=== PATIENT | female | born 1990 | race Caucasian/White ===

== ENCOUNTER 2022-06-19 11:15 | Emergency (ER) | payer OTHER, SELFPAY ==
--- NOTE | ~2022-06-19 | US_ITS ---
EXAMINATION: US PELVIS CLINICAL INFORMATION: Lower abdominal pain COMPARISON: Previous CT of the abdomen and pelvis from earlier the same day TECHNIQUE: Ultrasound of the pelvis is performed using both transabdominal and transvaginal transducers along with Doppler. Grayscale and color evaluation of the ovarian vessels including waveform spectral analysis FINDINGS: The uterus is anteverted and measures 8 x 3.6 x 5.3 cm. No focal uterine lesion is seen. Endometrial thickness is normal measuring 1.6 cm. The right ovary is slightly enlarged measuring 5.3 x 4.1 2.9 cm. There are 2 heterogeneous partially hypoechoic partially hyperechoic lesions in the right ovary measuring 2 x 1.7 x 2 cm and 2.3 x 1.7 x 2.6 cm. Compared with previous CT this is compatible with a dermoid. Arterial and venous flow is documented to the right ovary. There is no evidence of torsion. The left ovary is slightly enlarged and measures 4.7 x 3.1 x 2.8 cm. There is a heterogeneous 3 x 2.5 x 2.3 cm partially hypoechoic partially hyperechoic lesion in the left ovary also compatible with a dermoid. Arterial and venous flow is documented to the left ovary.. There is no evidence of torsion. There is no fluid in the pelvis. US/US pelvic complete IMPRESSION: No evidence of torsion. Bilateral heterogeneous ovarian lesions which when compared with prior CT likely represent dermoids.
--- NOTE | ~2022-06-19 | CT_ITS ---
EXAMINATION: CT ABDOMEN AND PELVIS WITH CONTRAST CLINICAL INFORMATION: Lower abdominal pain COMPARISON: None TECHNIQUE: Multidetector volumetric images were obtained from the superior aspect of the liver through the pubic symphysis following administration 85 mL of Omnipaque 350 intravenous contrast. Sagittal and coronal reformatted images were obtained on the technologist's workstation. Oral contrast: Yes This CT examination was performed using dose optimization techniques as appropriate, variously including the following: *Automated exposure control *Adjustment of mA and/or kV according to patient size (this includes techniques or standardized protocols for targeted exams where dose is matched to indication/reason for exam; i.e. extremities or head) *Use of iterative reconstruction technique DLP: 385 mGy-cm FINDINGS: LUNG BASES: The visualized lung bases are unremarkable. LIVER, GALLBLADDER, AND BILIARY TREE: The liver is normal in size, shape, and attenuation. No focal hepatic lesion or biliary ductal dilatation is present. The gallbladder is unremarkable with no evidence of radiopaque gallstones, gallbladder wall thickening, or obvious pericholecystic inflammatory changes. PANCREAS: Unremarkable. SPLEEN: Unremarkable. ADRENAL GLANDS: Unremarkable. KIDNEYS AND URETERS: The kidneys are normal in size, shape, and attenuation. No hydronephrosis, hydroureter, or calculi seen. No perinephric stranding. BLADDER: Unremarkable. GASTROINTESTINAL TRACT: The small and large bowel are unremarkable. The appendix is unremarkable. There may be a small esophageal hernia and question wall thickening of the distal thoracic esophagus/GE junction.. ABDOMINAL WALL: No significant hernia is appreciated. LYMPH NODES: Normal. VASCULAR: Unremarkable. PELVIC VISCERA: There are bilateral adnexal dermoid cysts. These are bilobed and measure 2.8 x 4.3 cm on the right with a tooth and 1.2 x 2.6 cm on the left. The uterus is unremarkable. OSSEOUS STRUCTURES: Unremarkable. CT/CT abdomen pelvis w IV con IMPRESSION: Bilateral adnexal dermoid cysts. Probable small esophageal hernia. Fleischner guidelines were followed.
--- NOTE | ~2022-06-19 | US_ITS ---
EXAMINATION: US PELVIS CLINICAL INFORMATION: Lower abdominal pain COMPARISON: Previous CT of the abdomen and pelvis from earlier the same day TECHNIQUE: Ultrasound of the pelvis is performed using both transabdominal and transvaginal transducers along with Doppler. Grayscale and color evaluation of the ovarian vessels including waveform spectral analysis FINDINGS: The uterus is anteverted and measures 8 x 3.6 x 5.3 cm. No focal uterine lesion is seen. Endometrial thickness is normal measuring 1.6 cm. The right ovary is slightly enlarged measuring 5.3 x 4.1 2.9 cm. There are 2 heterogeneous partially hypoechoic partially hyperechoic lesions in the right ovary measuring 2 x 1.7 x 2 cm and 2.3 x 1.7 x 2.6 cm. Compared with previous CT this is compatible with a dermoid. Arterial and venous flow is documented to the right ovary. There is no evidence of torsion. The left ovary is slightly enlarged and measures 4.7 x 3.1 x 2.8 cm. There is a heterogeneous 3 x 2.5 x 2.3 cm partially hypoechoic partially hyperechoic lesion in the left ovary also compatible with a dermoid. Arterial and venous flow is documented to the left ovary.. There is no evidence of torsion. There is no fluid in the pelvis. US/US pelvic ovarian doppler IMPRESSION: No evidence of torsion. Bilateral heterogeneous ovarian lesions which when compared with prior CT likely represent dermoids.
[2022-06-19 11:20] VITALS: BP 138/88; PULSE 128; RESP 20; TEMP 36.7; O2SAT 98; BMI 21.6
--- NOTE | 2022-06-19 15:23 | ED.ABDPAIN ---
HPI - Abdominal Pain General Chief Complaint: Abdominal Pain Stated Complaint: abd pain Time Seen by Provider: 06/19/22 15:16 Source: patient Mode of arrival: ambulatory Limitations: no limitations History of Present Illness HPI narrative: Is a 31-year-old female presenting to the emergency department with fatigue, malaise, nausea, vomiting, abdominal pain x4 days. Patient reports severe lower abdominal pain that is constant in nature, patient tells me she has been intermittently vomiting throughout the day, she reports vomiting I yellow bile like substance. Tells me she has not been able to keep anything down for the past 4 days. She tells me she feels awful. I asked her if she has ever had anything like this before she tells me never. She states she has a history of ovarian cyst however this does not feel like the time should ovarian cyst. She denies fevers, chills, headache, vision changes, dizziness, chest pain, shortness of breath, changes in diet, changes in urination, changes in bowel habits, vaginal bleeding & discharge. Patient went to an urgent care this morning who advised her to come into the emergency department for further evaluation and treatment, she had a negative urine test and a negative COVID swab. Patient reports that she does not drink alcohol. Related Data Previous Rx's Medication Instructions Recorded ondansetron 4 mg disintegrating 4 mg PO Q6H PRN nausea and 06/19/22 tablet vomiting #14 tabs Allergies Allergy/AdvReac Type Severity Reaction Status Date / Time divalproex sodium Allergy Unknown ANAPHYLAXIS Verified 06/19/22 23:35 [From DEPAKOTE] hydromorphone [From DILAUDID] Allergy Unknown NAUSEA AND Verified 06/19/22 23:35 THROAT PAIN Review of Systems Review of Systems Constitutional : No Weight loss, No Fever, No Chills, No Fatigue, No Malaise ENT/Mouth : No sore throat, No Rhinorrhea Eyes: No Eye Pain, No Swelling, No Redness Cardiovascular : No Chest Pain, No SOB, No Dyspnea on Exertion, No Orthopnea, No Edema, No Palpitations Respiratory : No Cough, No Sputum, No Wheezing Gastrointestinal : + Nausea, + Vomiting, No Diarrhea, No Constipation, + abdominal Pain, No Hematochezia, No Melena Genitourinary : No Dysuria, No Urinary Frequency, No Hematuria, Musculoskeletal : No joint pain, No Myalgias, No Joint Swelling Skin : No Skin Lesions, No rash Neuro : No Weakness, No Numbness, No Dizziness, No Headache Psych : No Anxiety/Panic, No Depression All other systems reviewed and are negative Yes all other systems are reviewed and are negative [facility] Past Medical History Attestation statement: The following information was validated with the patient. Source: old records reviewed and nursing notes reviewed Social History Social History Advance Directives: No Advance Directives Information Provided: Yes Patient : No Physical Exam ED Vital Signs: Vital Signs - 24 hr 06/19/22 11:20 06/19/22 16:56 06/19/22 23:28 Temperature 98.1 F 98.5 F Pulse Rate 128 H 91 85 Respiratory Rate 20 18 Blood Pressure 138/88 124/89 111/79 Pulse Oximetry 98 98 97 Oxygen Delivery Method Room Air Room Air Room Air BMI result Body Mass Index 21.6 vss Appearance: Alert.? Oriented X3.? No acute distress.? Head: Normocephalic, atraumatic, no step-offs or deformities Eyes: Pupils equal, round and reactive to light.? ENT: Pharynx normal.? Dry mucous membrane Neck: Normal inspection.? Neck supple.? CVS: Normal heart rate and rhythm.? Pulses normal.? Respiratory: No respiratory distress.? Breath sounds normal.? Abdomen: Soft and + tenderness to lower abdomen throughout. Negative Freeman sign..? Skin: Skin warm and dry.+ pale skin. Normal skin turgor.? Extremities: No lower extremity edema.? No calf ttp. 5/5 strength to bilateral upper and lower extremities Neuro: Oriented X 3.? No motor deficit.? No sensory deficit. CN 2-12 intact Course Reevaluation(s) Reevaluation #1: CBC with slight leukocytosis likely reactive from nausea/vomiting, chemistry with no electrolyte abnormalities requiring intervention, liver panel within normal limits, lipase within normal limits. Urine negative. COVID negative. CT of the abdomen and pelvis with bilateral adnexal dermoid cyst, and possible small esophageal hernia. At this time pelvic and transvaginal ultrasound ordered. Patient has been without vomiting for the past few hours. Time: 21:20 Reevaluation #2: Pelvic ultrasound with no evidence of torsion. Bilateral ovarian lesions which when compared with prior CT likely represent dermoids. Educated patient on this finding, she tells me she knew about this. Still reporting abdominal pain. Will give GI cocktail Time: 23:19 Reevaluation #3: Urine clean. At this time patient will be discharged home will give p.o. fluids to ensure she can all them down. At this time I feel comfortable discharge with prompt PCP follow-up. Advised to follow-up with PCP, OBGYN in GI of necessary. Comfortable discharge I suspect this is viral in origin. Time: 00:27 MDM - Abdominal Pain MDM Narrative Medical decision making narrative: [id number] 31 year old female presents with nausea, vomiting and abd pain X4 days PE with lower abd pain throughout. Normal bowel sounds. RRR.Lungs clear. Neuro nonfocal. Patient appears pale. Will rule out pancreatitis, cholecystitis, appendicitis. However likely viral in origin. Unlikely ovarian torsion, ectopic or ovarian cyst. Plan at this time is basic labs, urine, urine . Will give fluids, antiemetic Medical Records Attestation: I reviewed the patient's medical records. Lab Data Attestation: I reviewed the patient's lab results. Result diagrams: 06/19/22 16:09 06/19/22 16:09 Labs: Lab Results 06/19/22 06/19/22 06/19/22 Range/Units 15:27 16:09 16:09 WBC 11.5 H (4.8-10.8) X10*3/uL RBC 5.18 (4.20-5.50) X10*6/uL Hgb 16.0 (12.0-16.0) g/dl Hct 45.2 (37.0-47.0) % MCV 87.3 (80.0-98.0) fL MCH 30.9 (27.0-33.0) pg MCHC 35.4 H (31.0-35.0) g/dl RDW 12.4 (11.0-16.0) % Plt Count 380 (160-400) X10*3/uL MPV 9.4 (9.4-12.3) fL Absolute Nucleated RBC 0.000 (0.0-0.012) X10*3/uL Nucleated RBC % (auto) 0.0 (0.0-0.2) /100WBC Sodium 139 (135-145) mmol/L Potassium 3.3 (3.3-5.1) mmol/L Chloride 94 L (96-108) mmol/L Carbon Dioxide 31 H (22-29) mmol/L Anion Gap 17 (12-20) BUN 7 L (9-16) mg/dL Creatinine 0.76 (0.5-1.4) mg/dL Estim Creat Clear Calc 94.7 Estimated GFR > 60 Random Glucose 103 (60-115) mg/dL Calcium 9.3 (8.4-10.2) mg/dL Total Bilirubin 0.7 (0.0-1.0) mg/dL Direct Bilirubin 0.3 (0.0-0.5) mg/dL AST 18 (5-31) U/L ALT 25 (0-31) U/L Alkaline Phosphatase 69 (39-117) U/L Total Protein 7.1 (6.5-8.0) g/dL Albumin 4.4 (3.5-5.0) g/dL Lipase 9 (8-78) U/L Beta HCG, Quant < 2 mIU/mL Urine Color Urine Appearance Urine pH (5.0-9.0) Ur Specific [place] (1.005-1.025) Urine Protein (Neg-Trace) mg/dL Urine Glucose (UA) (Negative) mg/dL Urine Ketones (Negative) mg/dL Urine Blood (Negative) Urine Nitrite (Negative) Ur Leukocyte Esterase (Negative) Urine RBC (0-2) /HPF Urine WBC (0-5) /HPF Ur Squamous Epith Cells (0-2) /HPF Urine Bacteria (None Seen) Hyaline Casts (0-2) /LPF Urine Test (NEGATIVE) Urine Opiates Screen (Not Detect) Urine Fentanyl Screen (Not Detect) Ur Barbiturates Screen (Not Detect) Ur Phencyclidine Scrn (Not Detect) Ur Amphetamines Screen (Not Detect) U Benzodiazepines Scrn (Not Detect) Urine Cocaine Screen (Not Detect) U Marijuana (THC) Screen (Not Detect) COVID-19 (ANCA) Negative (Negative) COVID-19 Clin Com See Note 06/19/22 06/19/22 06/19/22 Range/Units 23:34 23:34 23:34 WBC (4.8-10.8) X10*3/uL RBC (4.20-5.50) X10*6/uL Hgb (12.0-16.0) g/dl Hct (37.0-47.0) % MCV (80.0-98.0) fL MCH (27.0-33.0) pg MCHC (31.0-35.0) g/dl RDW (11.0-16.0) % Plt Count (160-400) X10*3/uL MPV (9.4-12.3) fL Absolute Nucleated RBC (0.0-0.012) X10*3/uL Nucleated RBC % (auto) (0.0-0.2) /100WBC Sodium (135-145) mmol/L Potassium (3.3-5.1) mmol/L Chloride (96-108) mmol/L Carbon Dioxide (22-29) mmol/L Anion Gap (12-20) BUN (9-16) mg/dL Creatinine (0.5-1.4) mg/dL Estim Creat Clear Calc Estimated GFR Random Glucose (60-115) mg/dL Calcium (8.4-10.2) mg/dL Total Bilirubin (0.0-1.0) mg/dL Direct Bilirubin (0.0-0.5) mg/dL AST (5-31) U/L ALT (0-31) U/L Alkaline Phosphatase (39-117) U/L Total Protein (6.5-8.0) g/dL Albumin (3.5-5.0) g/dL Lipase (8-78) U/L Beta HCG, Quant mIU/mL Urine Color Yellow Urine Appearance Clear Urine pH 7.5 (5.0-9.0) Ur Specific [place] 1.025 (1.005-1.025) Urine Protein Negative (Neg-Trace) mg/dL Urine Glucose (UA) Negative (Negative) mg/dL Urine Ketones Negative (Negative) mg/dL Urine Blood Negative (Negative) Urine Nitrite Negative (Negative) Ur Leukocyte Esterase Trace H (Negative) Urine RBC 0-2 (0-2) /HPF Urine WBC 0-5 (0-5) /HPF Ur Squamous Epith Cells 0-2 (0-2) /HPF Urine Bacteria None Seen (None Seen) Hyaline Casts 0-2 (0-2) /LPF Urine Test NEGATIVE (NEGATIVE) Urine Opiates Screen Not Detected (Not Detect) Urine Fentanyl Screen Not Detected (Not Detect) Ur Barbiturates Screen Not Detected (Not Detect) Ur Phencyclidine Scrn Not Detected (Not Detect) Ur Amphetamines Screen Not Detected (Not Detect) U Benzodiazepines Scrn Not Detected (Not Detect) Urine Cocaine Screen Not Detected (Not Detect) U Marijuana (THC) Screen POSITIVE H (Not Detect) COVID-19 (ANCA) (Negative) COVID-19 Clin Com Critical Care Time Critical Care Time Critical Care Time: No Discharge Plan Discharge Clinical Impression: Abdominal pain, Nausea & vomiting, Adnexal cyst Patient Disposition: Home, Self-Care Instructions: Acute Nausea and Vomiting (ED), Abdominal Pain (ED) Additional Instructions: Take your medications as prescribed. If you were prescribed antibiotics today, it is important that you take your medication to their entirety, do not skip any doses, do not finish them early. Follow-up with your primary care provider this week. Please follow-up with OBGYN as soon as possible. Follow-up with gastroenterology if necessary. Return to the emergency department with new or worsening symptoms. Such as fevers, chills, chest pain, shortness of breath, nausea, vomiting, dizziness, headache, vision changes, lethargy In case of emergency call 911 Please follow-up bland diet. Travis has been sent to her pharmacy, please take this as prescribed, please do not take more than the prescribed dose as it can cause abnormal heart rate and cardiac dysrhythmias. Please drink plenty of fluids. Your laboratory studies were reassuring. The result to your imaging studies listed below. CT/CT abdomen pelvis w IV con IMPRESSION: Bilateral adnexal dermoid cysts. Probable small esophageal hernia. ? Ultrasound: Fleischner guidelines were followed. FINDINGS: The uterus is anteverted and measures 8 x 3.6 x 5.3 cm. No focal uterine lesion is seen. Endometrial thickness is normal measuring 1.6 cm. The right ovary is slightly enlarged measuring 5.3 x 4.1 2.9 cm. There are 2 heterogeneous partially hypoechoic partially hyperechoic lesions in the right ovary measuring 2 x 1.7 x 2 cm and 2.3 x 1.7 x 2.6 cm. Compared with previous CT this is compatible with a dermoid. Arterial and venous flow is documented to the right ovary. There is no evidence of torsion. The left ovary is slightly enlarged and measures 4.7 x 3.1 x 2.8 cm. There is a heterogeneous 3 x 2.5 x 2.3 cm partially hypoechoic partially hyperechoic lesion in the left ovary also compatible with a dermoid. Arterial and venous flow is documented to the left ovary.. There is no evidence of torsion. There is no fluid in the pelvis. US/US pelvic ovarian doppler IMPRESSION: No evidence of torsion. Bilateral heterogeneous ovarian lesions which when compared with prior CT likely represent dermoids. Prescriptions: New ondansetron 4 mg tablet,disintegrating 4 mg PO Q6H PRN (Reason: nausea and vomiting) Qty: 14 0RF Referrals: Physician,Unknown J [Primary Care Provider] - 2 days [facility] [Provider Group] - 1 week
[2022-06-19 15:54] LABS: COVID-19 Test Negative (Negative)
[2022-06-19 16:20] LABS: Hematocrit 45.2 % (37.0-47.0); Mean Corpuscular HGB Conc 35.4 g/dl (31.0-35.0); Mean Corpuscular Hemoglobin 30.9 pg (27.0-33.0); Mean Corpuscular Volume 87.3 fL (80.0-98.0); Mean Platelet Volume 9.4 fL (9.4-12.3); Platelet Count 380 X10*3/uL (160-400); Red Blood Count 5.18 X10*6/uL (4.20-5.50); Red Cell Distribution Width 12.4 % (11.0-16.0); White Blood Count 11.5 X10*3/uL (4.8-10.8)
[2022-06-19] MEDS: diphenhydrAMINE HCL 50 MG/ML VIAL 25 MG IVPUSH (16:28)
[2022-06-19] MEDS: 0.9 % Sodium Chloride 1,000 ML 999 ML IV ×2 (16:28→23:41)
[2022-06-19] MEDS: Metoclopramide HCl 10 MG/2 ML VIAL IVPUSH (16:29)
[2022-06-19 16:44] LABS: Alanine Aminotransferase 25 U/L (0-31); Alkaline Phosphatase 69 U/L (39-117); Lipase 9 U/L (8-78)
[2022-06-19 16:46] LABS: Albumin Level 4.4 g/dL (3.5-5.0); Anion Gap 17 (12-20); Aspartate Amino Transferase 18 U/L (5-31); Bilirubin Direct 0.3 mg/dL (0.0-0.5); Bilirubin Total 0.7 mg/dL (0.0-1.0); Blood Urea Nitrogen 7 mg/dL (9-16); Calcium 9.3 mg/dL (8.4-10.2); Carbon Dioxide 31 mmol/L (22-29); Chloride 94 mmol/L (96-108); Creatinine Clr Calc Pharmacy 94.7; Estimated Glomerular Filt Rate > 60; Glucose Random 103 mg/dL (60-115); Potassium 3.3 mmol/L (3.3-5.1); Sodium 139 mmol/L (135-145); Total Protein 7.1 g/dL (6.5-8.0)
[2022-06-19 16:56] VITALS: BP 124/89; PULSE 91; RESP 18; TEMP 36.9; O2SAT 98
--- NOTE | 2022-06-19 18:30 | PC.NURSE ---
pt refused to answer some of the safety questions.
[2022-06-19 19:08] LABS: HCG Quantitative < 2 mIU/mL
[2022-06-19] MEDS: iohexoL 350 MG/ML 100 ML INFUS..BTL IV (19:16)
[2022-06-19 23:28] VITALS: BP 111/79; PULSE 85; O2SAT 97
[2022-06-19] MEDS: Ondansetron ODT 4 MG TAB.RAPDIS TRANSLINGU (23:40)
[2022-06-19] MEDS: Ketorolac Tromethamine 15 MG/ML VIAL IVPUSH (23:41)
[2022-06-19] MEDS: Magnesium Hydrox/Alum Hydrox 30 ML ORAL.SUSP PO (23:42)
[2022-06-19] MEDS: PHENobarb/Hyoscy/Atropine/Scop 10 ML ELIXIR PO (23:44)
[2022-06-19 23:46] LABS: Appearance Urine Clear; Color Urine Yellow; Glucose Urine UA Negative (Negative); Leukocyte Esterase Urine Trace (Negative); Nitrite Urine Negative (Negative); PH 7.5 (5.0-9.0); Specific Gravity - Urine 1.025 (1.005-1.025); UMIC TRIGGER UACC YES; Urine Blood Negative (Negative); Urine Ketones Negative (Negative); Urine Protein Negative (Neg-Trace)
[2022-06-19 23:47] LABS: UPreg QC Valid YES; Urine Pregnancy NEGATIVE (NEGATIVE)
[2022-06-19 23:51] LABS: Bacteria Urine None Seen (None Seen); Hyaline Casts Urine 0-2 /LPF (0-2); RBC Urine 0-2 /HPF (0-2); Squamous Epithelial Cell Urine 0-2 /HPF (0-2); WBC Urine 0-5 /HPF (0-5)
[2022-06-19 23:59] LABS: Amphetamine Screen Urine Not Detected (Not Detect); Barbiturates, Urine Not Detected (Not Detect); Benzodiazepines Screen Urine Not Detected (Not Detect); Cannabinoid Screen Urine POSITIVE (Not Detect); Cocaine Screen Urine Not Detected (Not Detect); Fentanyl, urine Not Detected (Not Detect); Opiate Screen Urine Not Detected (Not Detect); Phencyclidine Screen Urine Not Detected (Not Detect)
== END 2022-06-20 00:59 | disposition home or self-care (01) ==
PROVIDERS: Physician Assistant; Emergency Provider Emergency Medicine
DX: R10.9 Unspecified abdominal pain (principal); R11.2 Nausea with vomiting, unspecified; Z20.822 Contact with and (suspected) exposure to COVID-19; Z79.899 Other long term (current) drug therapy
CPT/HCPCS: 36415; 74177; 76856; 80048; 80076; 80307; 81001; 81025; 83690; 84702; 85027; 87635; 93975; 96361; 96374; 96375; 99284; J1200; J1885; J2765; Q9967